=== PATIENT | female | born 1935 | race Asian ===

== ENCOUNTER 2019-04-06 15:17 | Inpatient (IN) | payer MEDICARE ==
[~2019-04-06] VITALS: Ht 160 cm; Wt 61.7 kg
--- NOTE | 2019-04-06 15:47 | NUR ---
PT WAS B/B AMBULANCE FROM HOME, CO GENERALIZED WEAKNESS AND SYNCOPE. PT WAS A/OX4 RIGHT NOW. VS STABLE, BUT STILL LOOKS WEAKNESS. NO SOB, BREATHING EVEN. MONITOR ON. KEEP CLOSE WATCHING.
--- NOTE | 2019-04-06 15:58 | NUR ---
ED PHYSICIAN AT BEDSIDE FOR PATIENT EVALUATION. MEDICAL SCREENING EXAMINATION COMPLETED BY ED PHYSICIAN.
--- NOTE | 2019-04-06 16:01 | NUR ---
SUMMARY/ UPDATE: EMS PROVIDED FAMILY CONTACT. DAUGHTER AHMET MAHER, . VERIFIRED FAMILY HAS CAMERAS IN HER HOME, PT LIVES ALONE. sHE SOMETIMES COVERS UP THE CAMERAS. Kassidy WENT TO CHECK AFTER NOTICING. KNOWN MEDS- [facility] AND DHE[facility] MCKINLEY, WILL REFERENCE EMS RECORDS. IS NORMALLY SEEN OUT OF [facility]. DAUGHTERS TO ARRIVE SOON.
[2019-04-06 17:03] LABS: PLATELET COUNT 228 x10^3mcL (130-400); RED CELL DISTRIBUTION WIDTH 13.9 % (11.5-14.5)
[2019-04-06 17:04] LABS: BASOPHIL % 0 % (0-2)
[2019-04-06 17:05] LABS: CALCIUM 9.5 mg/dL (8.5-10.1); CARBON DIOXIDE 25.4 mmol/L (21-32); CHLORIDE SERUM 101 mmol/L (98-107); CREATININE SERUM 0.8 mg/dL (0.6-1.0); GLUCOSE SERUM 147 mg/dL (74-106); POTASSIUM SERUM 4.4 mmol/L (3.5-5.1); SODIUM SERUM 136 mmol/L (136-145)
[2019-04-06 17:10] LABS: ALKALINE PHOSPHATASE 62 U/L (46-116); ALT/SGPT 41 U/L (14-59); AST/SGOT 31 U/L (15-37); BILIRUBIN TOTAL 0.86 mg/dL (0.20-1.00); CHOLESTEROL 249 mg/dL (<200); HDL CHOLESTEROL 107 mg/dL (40-60); TOTAL PROTEIN, SERUM 7.8 g/dL (6.4-8.2)
--- NOTE | 2019-04-06 17:13 | NUR ---
PT GOT BM. LARGE SIZE, STUDENT NURSE HELPED HER TO CLEAN UP.
--- NOTE | 2019-04-06 17:16 | NUR ---
PT WAS TAKEN TO CT
--- NOTE | 2019-04-06 17:45 | NUR ---
2 DAUGHTERS CAME IN, PT'S STATUS WAS UPDATED TO THEM.
[2019-04-06] MEDS ORDERED: ESCITALOPRAM10 M1 PO (17:57)
[2019-04-06] MEDS ORDERED: CARVEDILOL3.125 M1 PO (17:57)
[2019-04-06] MEDS ORDERED: XAN1 PO (17:58)
[2019-04-06] MEDS ORDERED: LATANOPROST2.5 ML OP (18:00)
--- NOTE | 2019-04-06 19:20 | NUR ---
DR VARGAS AT THE BEDSIDE DISCUSSING PLAN OF CARE.
--- NOTE | 2019-04-06 19:30 | NUR ---
IV MAGNESIUM AND IV FLUIDS INFUSING AT THIS TIME. NO INFILTRATION OR PAIN NOTED TO [place] SITE. 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 PT DENIES ANY PAIN AT THIS TIME. PT IN NO DISTRESS, RESP E/U, SKIN INTACT PINK WARM AND DRY. DAUGHTERS AT THE BEDSIDE. BED IN LOWEST POSITION, SIDERAIL X2 UP FOR SAFETY, CALL DURAND WITHIN REACH.
[2019-04-06 20:33] LABS: TRIGLYCERIDES 48 mg/dL (<150)
--- NOTE | 2019-04-06 20:45 | NUR ---
PT STRAIGHT CATHETERIZED TO OBTAIN URINE SAMPLE, PT TOLERATED WELL.
--- NOTE | 2019-04-06 21:04 | NUR ---
REPORT GIVEN TO VALENTINE ON TELE UNIT, WHO WILL ASSUME FURTHER CARE OF THIS PATIENT.
[2019-04-06 21:27] VITALS: BP 132/74
--- NOTE | 2019-04-06 21:32 | NUR ---
RECEIVED PT FROM ED [facility]IA [facility]. ORIENTED PT TO ROOM AND SURROUNDINGS. IV NOTED TO LAC PATENT AND INTACT. TELE 12 PLACED ON PT READING SR. INSTRUCTED PT ON THE USE OF CALL LIGHT FOR ASSISTANCE. ENDORSED PT TO PRIMARY NURSE VALENTINE
[2019-04-06 21:49] LABS: UA SPECIFIC GRAVITY 1.015 (1.005-1.035); microscopic required? YES; urine erythrocyte 1+ (NEGATIVE)
[2019-04-06 22:07] LABS: AMPHETAMINE QUAL UR NONE DETECTED (See below)
--- NOTE | 2019-04-06 22:10 | NUR ---
RECEIVED PT FROM ED, NO ACUTE DISTRESS. A/OX4, FORGETFUL AT TIMES. ORIENTED PT TO ROOM. HEPARIN DRIP CURRENTLY RUNNING AT 700 UNITS/HR, VERIFIED WITH JACKY GARCIA. BED IN LOWEST POSITION, SIDE RAILS UP X2, CALL LIGHT WITHIN REACH. WILL CONTINUE TO MONITOR.
[2019-04-06 22:16] VITALS: Ht 160 cm; Wt 61.7 kg
--- NOTE | 2019-04-07 00:02 | NUR ---
PT FOUND WITH LAC IV PULLED OUT, PT STATES SHE NOT SURE HOW IT HAPPENED. IV CATHETER INTACT. RFA IV PATENT AND INTACT. NO ACUTE DISTRESS. WILL CONTINUE TO MONITOR.
[2019-04-07 04:11] LABS: CALCIUM 8.6 mg/dL (8.5-10.1); CARBON DIOXIDE 27.6 mmol/L (21-32); CHLORIDE SERUM 107 mmol/L (98-107); CREATININE SERUM 0.7 mg/dL (0.6-1.0); GLUCOSE SERUM 112 mg/dL (74-106); MAGNESIUM 2.3 mg/dL (1.8-2.4); PHOSPHOROUS 2.2 mg/dL (2.5-4.9); POTASSIUM SERUM 3.7 mmol/L (3.5-5.1); SODIUM SERUM 141 mmol/L (136-145)
[2019-04-07 04:18] LABS: BASOPHIL % 0.3 % (0-2); PLATELET COUNT 222 x10^3mcL (130-400); RED CELL DISTRIBUTION WIDTH 13.9 % (11.5-14.5)
--- NOTE | 2019-04-07 06:06 | NUR ---
PT SLEPT PERIODICALLY THROUGHOUT NIGHT, NO ACUTE DISTRESS. ALL NEEDS MET AND ATTENDED TO. NO SIGNIFICANT CHANGES. IV PATENT AND INTACT. PTT 55.9, WITHIN THERAPUETIC RANGE, NEXT PTT SCHEDULED FOR 744. BED IN LOWEST POSITION, SIDE RAILS UP X2, CALL LIGHT WITHIN REACH. WILL ENDORSE CARE TO ONCOMING NURSE.
[2019-04-07 06:13] VITALS: BP 135/63
[2019-04-07 07:21] VITALS: BP 149/82
--- NOTE | 2019-04-07 07:30 | NUR ---
PT ENDORSE TO ME THIS MORNING, LAYING IN BED RESTING. AA/O X3 FORGETFUL AT TIME. BREATHING EVEN AND UNLABORED ON RA, NO ACUTE RESP DISTRESS OR SOB NOTED. TELE 12 SR NOTED, HR 63. DENIES ANY CP OR PRESSURE. BOWEL SOUNDS ACTIVE IN ALL FOUR QUADS. VOIDS FREELY. AMB/ KNOWS TO CALL FOR ASSIST. IV TO THE RFA INTACT AND PATENT/ INFUSING AT 100ML/HR, NO REDNESS OR SWELLING NOTED. CURRENTLY ON HEPARIN DRIP AT 700 UNITS/HR. NEXT PTT AT 0745 AM. WILL CONTINUE TO MONITOR. CALL LIGHT IN REACH.
--- NOTE | 2019-04-07 09:25 | NUR ---
LAB CALLED WITH CURRENT PTT OF 58.5 = NO CHANGE MADE TO HEPARIN DRIP, PTT ORDER FOR TOMORROW 0500AM. WILL CONTINUE TO MONITOR.
--- NOTE | 2019-04-07 10:26 | NUR ---
LAB CALLED TROP 0.189 DR. HARRIS MADE AWARE.
[2019-04-07 11:58] VITALS: BP 151/82
--- NOTE | 2019-04-07 14:51 | NUR ---
PER DR. FRANCISCO ORDERS HEPARIN DRIP INFUSING AT 700 UNITS/HR, DC. ORDERS FOLLOWED THROUGH. FAMILY AT BED SIDE WILL CONTINUE TO MONITOR.
--- NOTE | 2019-04-07 15:58 | NUR ---
RECEIVED ORDER TO ARRANGE FOR TRANSFER TO [facility]. PURIFICATION OPERATOR CM. DIAZ AND BARREL RIFLER BROACH MARIN MADE AWARE. PATIENT'S DAUGHTER AHMET MAHER INFOREMD THE PLAN OF CARE.
[2019-04-07 17:33] VITALS: BP 155/76
--- NOTE | 2019-04-07 17:55 | NUR ---
SPOKE WITH ALICIA FROM [facility]. INFORMATION GIVEN REGRADING PTS CARE. ALICIA STATED SHE WILL CALL BACK WITH AN UPDATE REGRADING TRANSFRER.
--- NOTE | 2019-04-07 18:51 | NUR ---
NO ACUTE CHANGES AT THIS TIME, NO ACUTE RESP DISTRESS OR SOB NOTED. REMAINS ON TELE 12 SR, HR 60S, DENIES ANY CP OR PRESSURE. CALL LIGHT IN REACH. BED IN LOW POSITION, BY NURSING STATION, BED ALARM ON. WILL ENDORSE TO INCOMING RN.
--- NOTE | 2019-04-07 19:51 | NUR ---
RECEIVED CALL FOR ERIC FROM [facility]. PT HAS BEEN ACCEPTED TO [facility] [id number], ACCEPT DOCTOR IS DR BECK. STEEL [employer] FORM PLACING SUPERVISOR TIME ARRANGED FOR 2229. PATIENT AND FAMILY INFORMED. PRIMARY NURSE MADE AWARE
[2019-04-07 19:57] VITALS: BP 142/79
--- NOTE | 2019-04-07 20:05 | NUR ---
REPORT TO BE CALLED TO [phone]
[2019-04-07 20:14] VITALS: BP 142/79
--- NOTE | 2019-04-07 20:51 | NUR ---
[facility] HERE. CALLED [facility], REPORT GIVEN TO NURSE NAMAN. HE STATED THEY WILL BE READY IN ABOUT 20 MINUTES. PT AWAKE AND ALERT, IN NO ACUTE DISTRESS.
--- NOTE | 2019-04-07 21:05 | NUR ---
REPORT GIVEN TO [facility] PERSONNEL. TELEBOX RETURNED BY NURSE NAVYA TO MONITOR STATION
--- NOTE | 2019-04-07 21:12 | NUR ---
TRANSFERRED TO [facility] VIA [facility].
--- NOTE | 2019-04-08 08:03 | NUR ---
ECHOCARDIOGRAM NOT DONE-DISCHARGED
== END 2019-04-07 21:18 | disposition short-term general hospital (02) | DRG 280 ==
LOC: ED 15:17 → DU 19:56
PROVIDERS: Emergency Medicine; ADMIT Internal Medicine
DX: I21.4 Non-ST elevation (NSTEMI) myocardial infarction (principal); N17.0 Acute kidney failure with tubular necrosis; G93.41 Metabolic encephalopathy; J98.11 Atelectasis; M62.82 Rhabdomyolysis; I11.0 Hypertensive heart disease with heart failure; I50.9 Heart failure, unspecified; E83.42 Hypomagnesemia; E86.0 Dehydration; F32.9 Major depressive disorder, single episode, unspecified; H40.9 Unspecified glaucoma; E78.5 Hyperlipidemia, unspecified; F41.9 Anxiety disorder, unspecified; F03.90 Unspecified dementia, unspecified severity, without behavioral disturbance, psychotic disturbance, mood disturbance, and anxiety; Z79.82 Long term (current) use of aspirin; Z68.24 Body mass index [BMI] 24.0-24.9, adult
CPT/HCPCS: 83880; 94150; 97116-GP; G0378; J1644; J1885; J3475; J7030; Q0092